=== PATIENT | male | born 1995 | race Asian ===

== ENCOUNTER 2017-03-21 00:01 | Emergency (ER) | payer OTHER ==
[~2017-03-21] VITALS: Ht 167.6 cm; Wt 59.9 kg
[2017-03-21 00:41] LABS: BILIRUBIN,URINE NEGATIVE (NEGATIVE); CLARITY,URINE CLEAR; COLOR,URINE YELLOW; GLUCOSE, URINE (UA) NEGATIVE (NEGATIVE); KETONES,URINE NEGATIVE (NEGATIVE); LEUKOCYTE ESTERASE ,URINE NEGATIVE (NEGATIVE); NITRITE,URINE NEGATIVE (NEGATIVE); PH,URINE 6 (5-9); PROTEIN,URINE NEGATIVE (NEGATIVE); UROBILINOGEN,URINE NORMAL (NORMAL)
[2017-03-21 00:45] LABS: BASOPHILS % (AUTO) 0 % (0-10); EOSINOPHILS # (AUTO) 0.3 10^3/uL (0.0-0.3); EOSINOPHILS % (AUTO) 3 % (0-10); HEMATOCRIT 45 % (40-54); HEMOGLOBIN 16.1 G/DL (13.3-17.7); LYMPHOCYTES % (AUTO) 19 % (12-44); MEAN CORPUSCULAR HEMOGLOBIN 31 PG (25-34); MEAN CORPUSCULAR HGB CONC 36 G/DL (32-36); MEAN CORPUSCULAR VOLUME 87 FL (80-99); MONOCYTES % (AUTO) 10 % (0-12); NEUTROPHILS # (AUTO) 7.2 X 10^3 (1.8-7.8); NEUTROPHILS % (AUTO) 68 % (42-75); PLATELET COUNT 240 10^3/uL (130-400); RED BLOOD COUNT 5.15 10^6/uL (4.35-5.85); RED CELL DISTRIBUTION WIDTH 12.2 % (10.0-14.5); WHITE BLOOD COUNT 10.6 10^3/uL (4.3-11.0)
--- NOTE | 2017-03-21 00:49 | ED Abdominal Pain ---
General Chief Complaint: Abdominal/GI Problems Stated Complaint: UPPER ABD PAIN,POSS ACID REFLUX Nursing Triage Note: PT C/O EPIGASTRIC PAIN. HE WAS SEEN AND TX AT A CLINIC IN [facility] ON 03/19/17 FOR SAME S/S. PT WAS PRESCRIBED OMEPRAZOLE 1 PILL PO BID. HE REPORTS HIS PAIN IS NOT IMPROVING. HE DENIES N/V. Sepsis Screen: No Definite Risk Source of Information: Patient, Devil [employer] Exam Limitations: Other (PT SPEAKS FAIR RUSSIAN. FRIEND ALSO INTERPRETS SOME. ) History of Present Illness Date Seen by Provider: Mar 21, 2017 Time Seen by Provider: 00:25 Initial Comments C/O EPIGASTRIC PAIN SINCE Monday03/18/17 PAIN IS CONSTANT. PAIN IS WORSENED BY FOOD, AND ALSO WITH MOVING OR BREATHING. ATE BURGER, FRIES AND SOFT DRINK 2 HOURS AGO, AND HAS EATEN REGULAR THROUGHOUT THE DAY TODAY. NO RADIATION OF PAIN NO NAUSEA/VOMITING/DIARRHEA NO FEVER NO URINARY SYMPTOMS NO HISTORY OF SIMILAR PT STATES HE DID DRINK ALOT OF ALCOHOL ON MONDAY NIGHT. PT WAS SEEN AT A CLINIC IN [place] YESTERDAY 03/19/17 FOR THIS PROBLEM. HAD BLOOD DRAWN, BUT STATES WILL NOT HAVE RESULTS BACK FOR A COUPLE OF DAYS. WAS GIVEN RX FOR OMEPRAZOLE 20 MG BID PT HAS TAKEN A TOTAL OF ONE DOSE/1 PILL THIS AFTERNOON AND STATES "HE IS NOT BETTER AT ALL" SO CAME HERE FIORDALIZA WANTS A SCHOOL NOTE FOR TODAY Allergies and Home Medications Allergies Coded Allergies: No Known Drug Allergies (Unverified , 03/21/17) Review of Systems Constitutional: no symptoms reported Respiratory: No Symptoms Reported Cardiovascular: No Symptoms Reported Gastrointestinal: See HPI, Abdominal Pain, Denies Diarrhea, Denies Nausea, Denies Poor Appetite, Denies Poor Fluid Intake, Denies Vomiting Genitourinary: No Symptoms Reported Musculoskeletal: no symptoms reported, No back pain Skin: no symptoms reported Psychiatric/Neurological: No Symptoms Reported Endocrine: No Symptoms Reported Hematologic/Lymphatic: No Symptoms Reported Past Todjgkl-[id number]-Qmzszh Hx Patient Social History Alcohol Use: Occasionally Uses Recreational Drug Use: No Smoking Status: Current Everyday Smoker (1/2 PPD) Type Used: Cigarettes (1/2 PPD) 2nd Hand Smoke Exposure: Yes Recent Foreign Travel: No Contact w/Someone Who Travel: No Recent Infectious Disease Expo: No Recent Hopitalizations: No Seasonal Allergies Seasonal Allergies: No Surgeries History of Surgeries: Yes (HEMMORHOIDECTOMY) Physical Exam Vital Signs VS - Last 72 Hours, by Label 03/21/17 00:15 Temp 97.1 Pulse 92 Resp 16 B/P (MAP) 136/76 (96) Pulse Ox 98 O2 Delivery Room Air Capillary Refill : Less Than 3 Seconds General Appearance: WD/WN, no apparent distress, thin, other (WALKS UPRIGHT AND MOVES WITHOUT DIFFICULTY. DOES NOT APPEAR TO BE IN ANY DISCOMFORT WHATSOEVER. 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, no motor/sensory deficits, alert, normal mood/affect, oriented x 3 Skin: normal color, warm/dry, No rash Progress/Results/Core Measures Results/Orders Lab Results Laboratory Tests Test 03/21/17 00:30 03/21/17 00:35 Range/Units Urine Color YELLOW Urine Clarity CLEAR Urine pH 6 5-9 Urine Specific [place] 1.025 H 1.016-1.022 Urine Protein NEGATIVE NEGATIVE Urine Glucose (UA) NEGATIVE NEGATIVE Urine Ketones NEGATIVE NEGATIVE Urine Nitrite NEGATIVE NEGATIVE Urine Bilirubin NEGATIVE NEGATIVE Urine Urobilinogen NORMAL NORMAL MG/DL Urine Leukocyte Esterase NEGATIVE NEGATIVE Urine RBC (Auto) NEGATIVE NEGATIVE Urine RBC NONE /HPF Urine WBC NONE /HPF Urine Squamous Epithelial Cells RARE /HPF Urine Crystals NONE /LPF Urine Bacteria NEGATIVE /HPF Urine Casts NONE /LPF Urine Mucus MODERATE H /LPF Urine Culture Indicated NO White Blood Count 10.6 4.3-11.0 10^3/uL Red Blood Count 5.15 4.35-5.85 10^6/uL Hemoglobin 16.1 13.3-17.7 G/DL Hematocrit 45 40-54 % Mean Corpuscular Volume 87 80-99 FL Mean Corpuscular Hemoglobin 31 25-34 PG Mean Corpuscular Hemoglobin Concent 36 32-36 G/DL Red Cell Distribution Width 12.2 10.0-14.5 % Platelet Count 240 130-400 10^3/uL Mean Platelet Volume 9.0 7.4-10.4 FL Neutrophils (%) (Auto) 68 42-75 % Lymphocytes (%) (Auto) 19 12-44 % Monocytes (%) (Auto) 10 0-12 % Eosinophils (%) (Auto) 3 0-10 % Basophils (%) (Auto) 0 0-10 % Neutrophils # (Auto) 7.2 1.8-7.8 X 10^3 Lymphocytes # (Auto) 2.0 1.0-4.0 X 10^3 Monocytes # (Auto) 1.0 0.0-1.0 X 10^3 Eosinophils # (Auto) 0.3 0.0-0.3 10^3/uL Basophils # (Auto) 0.0 0.0-0.1 10^3/uL Sodium Level 142 135-145 MMOL/L Potassium Level 3.7 3.6-5.0 MMOL/L Chloride Level 105 98-107 MMOL/L Carbon Dioxide Level 26 21-32 MMOL/L Anion Gap 11 5-14 MMOL/L Blood Urea Nitrogen 16 7-18 MG/DL Creatinine 0.88 0.60-1.30 MG/DL Estimat Glomerular Filtration Rate > 60 BUN/Creatinine Ratio 18 Glucose Level 94 70-105 MG/DL Calcium Level 9.5 8.5-10.1 MG/DL Total Bilirubin 0.4 0.1-1.0 MG/DL Aspartate Amino Transf (AST/SGOT) 18 5-34 U/L Alanine Aminotransferase (ALT/SGPT) 28 0-55 U/L Alkaline Phosphatase 64 40-136 U/L Total Protein 7.5 6.4-8.2 GM/DL Albumin 4.3 3.2-4.5 GM/DL Amylase Level 85 25-125 U/L Lipase 14 8-78 U/L My Orders Orders - DANGELO DIAS DO Saline Lock/Iv-Start (03/21/17 00:32) Ct Abdomen/Pelvis W (03/21/17 00:32) Amylase (03/21/17 00:32) Cbc With Automated Diff (03/21/17 00:32) Comprehensive Metabolic Panel (03/21/17 00:32) Lipase (03/21/17 00:32) Ua Culture If Indicated (03/21/17 00:32) Abdomen, Flat & Upright/Decub (03/21/17 00:32) Pantoprazole Injection (Protonix Injecti (03/21/17 01:00) Hyoscyamine Sl Tablet (Levsin Sl Tablet) (03/21/17 01:00) Famotidine Injection (Pepcid Injection) (03/21/17 01:00) Medications Given in ED Current Medications Medications Dose Ordered Sig/Vera Route Start Time Stop Time Status Last Admin Dose Admin Famotidine 40 mg ONCE ONCE IVP 03/21/17 01:00 03/21/17 01:01 UNV 03/21/17 01:14 40 MG Hyoscyamine Sulfate 0.25 mg ONCE ONCE PO 03/21/17 01:00 03/21/17 01:01 UNV 03/21/17 01:14 0.25 MG Pantoprazole 40 mg ONCE ONCE IV 03/21/17 01:00 03/21/17 01:01 UNV 03/21/17 01:14 40 MG Vital Signs/I&O Vital Sign - Last 12Hours 03/21/17 00:15 Temp 97.1 Pulse 92 Resp 16 B/P (MAP) 136/76 (96) Pulse Ox 98 O2 Delivery Room Air Blood Pressure Mean: 96 Progress Note : Progress Note UNEVENTFUL ER STAY Diagnostic Imaging Comments ABDOMEN XRAYS--NO ACUTE PROCESS, PENDING RADIOLOGIST REVIEW CT ABDOMEN/PELVIS--BORDERLINE GASTRIC WALL THICKENING--POSSIBLE GASTRITIS; POSSIBLE ENTERITIS VS TECHNIQUE; SMALL NON-SPECIFIC MESENTERIC NODES; URINARY BLADDER WALL THICKENING, POSSIBLE CYSTITIS; DECOMPRESSED DESCENDING AND SIGMOID COLON-LIMITED EVALUATION--ALL PER [facility] VIA FAX @ [id number] Reviewed: Reviewed by Me Departure Impression Impression: Primary Impression: Epigastric pain Additional Impressions: POSSIBLE GASTRITIS POSSIBLE ALCOHOL INDUCED GASTRITIS Disposition: HOME, SELF-CARE Condition: Stable Departure-Patient Inst. Referrals: [facility] (PCP/Family) Primary Care Physician Patient Instructions: Acute Abdomen (Belly Pain), Adult (DC) Add. Discharge Instructions: CLEAR LIQUIDS--WATER, BROTH, JELLO, GATORADE TOMORROW IF YOU ARE BETTER, ADD BRATS DIET TO CLEAR LIQUIDS--BANANAS, RICE, APPLESAUCE, TOAST, SALTINES NO ALCOHOL CONTINUE OMEPRAZOLE PRESCRIBED FOLLOW UP WITH [facility] IN 2-3 DAYS FOR FURTHER CARE All discharge instructions reviewed with patient and/or family. Voiced understanding. Scripts Sucralfate (Carafate) 1 Gm Tablet 1 GM PO GILLES, #60 TAB Prov: DANGELO DIAS DO 03/21/17 Work/School Note: School/Childcare Release Date Seen in the Emergency Department: Mar 21, 2017 Return to School: Mar 21, 2017 Restrictions: No Restrictions DANGELO DIAS DO Mar 21, 2017 00:49
[2017-03-21 00:54] LABS: BACTERIA,URINE NEGATIVE /HPF; SQUAMOUS EPITHELIAL CELL,UR RARE /HPF
[2017-03-21] MEDS ORDERED: HYOSCYAMINE 0.125 MG (LEVSIN) TAB PO ONE (01:00)
[2017-03-21] MEDS ORDERED: FAMOTIDINE 20MG/2ML IV (PEPCID) IVP ONE (01:00)
[2017-03-21] MEDS ORDERED: PANTOPRAZOLE 40 MG/10 ML (PROTONIX) VIAL IV ONE (01:00)
[2017-03-21 01:05] LABS: ALANINE AMINOTRANSFERASE 28 U/L (0-55); ALBUMIN 4.3 GM/DL (3.2-4.5); ALKALINE PHOSPHATASE 64 U/L (40-136); AMYLASE 85 U/L (25-125); BILIRUBIN,TOTAL 0.4 MG/DL (0.1-1.0); BUN/CREATININE RATIO 18; CALCIUM 9.5 MG/DL (8.5-10.1); CARBON DIOXIDE 26 MMOL/L (21-32); CHLORIDE 105 MMOL/L (98-107); CREATININE SERUM 0.88 MG/DL (0.60-1.30); GFR ESTIMATED > 60; GLUCOSE 94 MG/DL (70-105); LIPASE 14 U/L (8-78); POTASSIUM 3.7 MMOL/L (3.6-5.0); SODIUM 142 MMOL/L (135-145); TOTAL PROTEIN 7.5 GM/DL (6.4-8.2)
[2017-03-21] MEDS ORDERED: PANTOPRAZOLE 40 MG/10 ML (PROTONIX) VIAL ONE (01:09)
[2017-03-21] MEDS ORDERED: HYOSCYAMINE 0.125 MG (LEVSIN) TAB ONE (01:10)
[2017-03-21] MEDS ORDERED: FAMOTIDINE 20MG/2ML IV (PEPCID) ONE (01:10)
[2017-03-21] MEDS ORDERED: SUCR1TAB36 PO (01:54)
[2017-03-21] MEDS ORDERED: LIDOCAINE 2% VISCOUS 15 ML UDC ONE (01:59)
[2017-03-21] MEDS ORDERED: ANTACID SUSP 30 ML UDC (MYLANTA) ONE (01:59)
[2017-03-21] MEDS ORDERED: LIDOCAINE 2% VISCOUS 15 ML UDC PO ONE (02:00)
[2017-03-21] MEDS ORDERED: ANTACID SUSP 30 ML UDC (MYLANTA) PO ONE (02:00)
[2017-03-21 02:05] VITALS: BP 136/76
--- NOTE | 2017-03-21 08:10 | Diagnostic Imaging Report ---
INDICATION: Abdominal pain. Time of exam: 1:06 AM No free air is identified. The bowel gas pattern is nonobstructive. No pathologic calcifications are seen. IMPRESSION: No acute abnormality is detected. Dictated by: Dictated on workstation # [id number]
--- NOTE | 2017-03-21 08:15 | Diagnostic Imaging Report ---
PROCEDURE: CT abdomen and pelvis with contrast. TECHNIQUE: Multiple contiguous axial images were obtained through the abdomen and pelvis after administration of intravenous contrast. INDICATION: Epigastric pain. No prior examinations are available for comparison. FINDINGS: Lung bases are clear. Heart size is normal. There is no pleural or pericardial fluid. The liver is normal in size without focal lesions. There is no biliary ductal dilatation. There is no cholelithiasis or gallbladder wall thickening. The spleen is normal. The pancreas and adrenal glands are unremarkable. Kidneys are normal in appearance. Some questionable mucosal thickening in the stomach which may reflect gastritis. There appears to be some hyperenhancement of fluid-filled small bowel loops in the left lower quadrant. There is no evidence of bowel obstruction. The descending and sigmoid colon are decompressed. The appendix is normal. There is some bladder wall thickening. There is no free air. There is some trace free pelvic fluid. The osseous structures are unremarkable. Abdominal aorta is nonaneurysmal. There are a few small nonspecific mesenteric lymph nodes. IMPRESSION: Questionable mucosal thickening in the stomach. Recommend clinical correlation for gastritis. Fluid-filled small bowel loops with hyperenhancement of the mucosa in the left lower quadrant. While this may be on a technical basis, possibility of enteritis cannot be excluded. Recommend clinical correlation. Urinary bladder wall thickening. Recommend correlation for cystitis. Trace free pelvic fluid. No other acute abnormality in the abdomen or pelvis. Dictated by: Dictated on workstation # [id number]
== END 2017-03-21 02:05 | disposition home or self-care (01) ==
LOC: ER 00:05
DX: R10.13 Epigastric pain (principal); F17.210 Nicotine dependence, cigarettes, uncomplicated
CPT/HCPCS: 36415; 74019; 74177; 80053; 81000; 82150; 83690; 85025; 96374; 96375